=== PATIENT | female | born 1955 | race Caucasian/White ===

== ENCOUNTER → 2021-05-19 | Outpatient (CLI) | payer BC | LOC: MC.RAD 14:27 | DX: Z12.31 Encounter for screening mammogram for malignant neoplasm of breast (principal) ==

== ENCOUNTER 2023-12-20 06:27 | Emergency (ER) | payer MEDICARE, BC ==
[~2023-12-20] VITALS: Ht 162.6 cm; Wt 68.6 kg
[2023-12-20 06:37] VITALS: TEMP 97.7
[2023-12-20] MEDS ORDERED: LR 1,000 ML IV ONE (07:45)
[2023-12-20] MEDS ORDERED: Ondansetron 4 MG/2 ML VIAL IV ONE (07:45)
[2023-12-20] MEDS ORDERED: Acetaminophen 500 MG TAB PO ONE (07:45)
[2023-12-20 08:10] LABS: BASO % 0.7 % (0.0-2.0); HEMATOCRIT 39.6 % (37.0-47.0); HEMOGLOBIN 13.7 g/dl (12.5-16.0); LYMPH # 0.6 K/mm3 (1.2-3.4); LYMPH % 19.3 % (20.0-51.0); MEAN CELL VOLUME 90 fl (80.0-100.0); MEAN CORPUSCULAR HEMOGLOBIN 31 pg (27-31); MEAN CORPUSCULAR HGB CONC 35 g/dl (33.0-37.0); MEAN PLATELET VOLUME 9.8 fl (7.4-10.4); MONO # 0.4 K/mm3 (0.1-0.6); MONO % 14.7 % (1.7-9.3); PLATELET COUNT 204 K/mm3 (130-400); RED BLOOD COUNT 4.41 M/mm3 (4.10-5.30); REDCELL DISTRIBUTION WIDTH-CV 12.4 % (11.5-14.5)
[2023-12-20 08:24] LABS: ALBUMIN 3.8 gm/dL (3.4-4.8); BILIRUBIN,TOTAL 0.4 mg/dL (0.2-1.2); CALCIUM 8.8 mg/dL (8.4-10.2); CREATININE, serum 0.79 mg/dL (0.57-1.11); POTASSIUM 4.4 mmol/L (3.5-4.5); TOTAL PROTEIN 7.2 gm/dL (6.2-8.1)
[2023-12-20] MEDS ORDERED: ZOFRAN ODT4 MG PO (09:34)
[2023-12-20 10:03] LABS: CALCIUM 9.2 mg/dL (8.4-10.2); CREATININE, serum 0.79 mg/dL (0.57-1.11); POTASSIUM 3.9 mmol/L (3.5-4.5)
[2023-12-20 10:29] VITALS: BP 118/76; PULSE 70
== END 2023-12-20 10:30 | disposition home or self-care (01) ==
LOC: COL.ER 06:27
PROVIDERS: Emergency Medicine
DX: J11.1 Influenza due to unidentified influenza virus with other respiratory manifestations (principal); E87.20 Acidosis, unspecified
CPT/HCPCS: J2405; J7120

== ENCOUNTER → 2024-07-15 | Outpatient (CLI) | payer MEDICARE, BC ==
[~2024-07-15] MED LIST: ZOFRAN ODT4 MG PO
== END ==
LOC: MC.RAD 11:15
DX: Z12.31 Encounter for screening mammogram for malignant neoplasm of breast (principal)